=== PATIENT | female | born 1970 | race Caucasian/White ===

== ENCOUNTER → 2017-04-27 | Outpatient (REF) | payer OTHER | LOC: M WUC 09:42 | PROVIDERS: ATTEND Physician Assistant | DX: N39.0 Urinary tract infection, site not specified (principal) ==

== ENCOUNTER → 2017-05-12 | Outpatient (REF) | payer OTHER | LOC: M LAB REF 08:41 | PROVIDERS: ATTEND Physician Assistant | DX: N39.0 Urinary tract infection, site not specified (principal) ==

== ENCOUNTER → 2017-12-05 | Outpatient (REF) | payer OTHER | LOC: M LAB REF 09:23 | DX: N39.0 Urinary tract infection, site not specified (principal) | CPT/HCPCS: 87088; 87186 ==

== ENCOUNTER → 2018-11-21 | Outpatient (REF) | payer OTHER | LOC: M WUC 10:22 | PROVIDERS: ATTEND Physician Assistant | DX: N39.0 Urinary tract infection, site not specified (principal) ==

== ENCOUNTER → 2020-02-07 | Outpatient (REF) | payer OTHER ==
[2020-02-07 18:10] LABS: FOLLICLE STIMULATING HORMONE 138.2 mIU/mL; LUTEINIZING HORMONE 50.7 mIU/mL
== END ==
LOC: M LAB REF 16:54
PROVIDERS: ATTEND Nurse Practitioner Family
DX: N91.2 Amenorrhea, unspecified (principal)

== ENCOUNTER → 2020-02-25 | Outpatient (REF) | payer OTHER | LOC: M WUC 10:05 | PROVIDERS: ATTEND Physician Assistant | DX: N39.0 Urinary tract infection, site not specified (principal) ==

== ENCOUNTER → 2020-03-06 | Outpatient (REF) | payer OTHER | LOC: M WUC 11:58 | PROVIDERS: ATTEND Physician Assistant | DX: N39.0 Urinary tract infection, site not specified (principal) ==

== ENCOUNTER → 2020-04-09 | Outpatient (REF) | payer OTHER | LOC: M SMT 06:47 | PROVIDERS: ATTEND Nurse Practitioner Family | DX: N39.0 Urinary tract infection, site not specified (principal) ==

== ENCOUNTER → 2020-04-26 | Outpatient (REF) | payer OTHER | LOC: M LAB REF 13:27 | PROVIDERS: ATTEND Nurse Practitioner Family | DX: R30.0 Dysuria (principal) ==

== ENCOUNTER → 2020-06-22 | Outpatient (REF) | payer OTHER, BC | LOC: M WUC 10:43 | PROVIDERS: ATTEND Nurse Practitioner Family | DX: R30.0 Dysuria (principal) ==

== ENCOUNTER → 2021-03-17 | Outpatient (REF) | payer OTHER, BC ==
[~2021-03-17] MED LIST: METH-855 PO
[2021-03-17 13:52] LABS: BACTERIA, URINE AUTO NEGATIVE (NEGATIVE); MUCUS, URINE SMALL (NEGATIVE); RBC, URINE AUTO 0 /HPF (0-3); SQUAMOUS EPITHELIAL CELL UR AU 0 /HPF (0-6); WBC, URINE AUTO 0 /HPF (0-3)
== END ==
LOC: M SMT 13:14
PROVIDERS: ATTEND Specialist
DX: Z87.440 Personal history of urinary (tract) infections (principal)

== ENCOUNTER → 2021-05-08 | Outpatient (CLI) | payer BC, OTHER ==
--- NOTE | 2021-05-08 09:17 | REP ---
INDICATION: PAIN. COMPARISON: None. TECHNIQUE: Eight views cervical spine including flexion and extension lateral views. FINDINGS: There is no compression fracture. There is normal cervical lordosis and alignment. There is no subluxation with flexion and extension. There is no prevertebral soft tissue swelling. There is mild anterior and posterior osteophytic ridging at the C5-6 level with associated moderate disc space narrowing and subchondral sclerosis. Uncovertebral spurring at the C5-6 level appears to cause at least a mild degree of bilateral neural foraminal narrowing. IMPRESSION: Moderate degenerative changes C5-6 level. <Electronically signed by Albert Martinez > 05/08/21 [id number]
== END ==
LOC: M PLAIMG 08:41
PROVIDERS: ATTEND Registered Nurse
DX: M50.322 Other cervical disc degeneration at C5-C6 level (principal)

== ENCOUNTER → 2021-05-20 | Outpatient (CLI) | payer BC, OTHER ==
--- NOTE | 2021-05-21 20:19 | REPVR ---
PROCEDURE INFORMATION: Exam: MR Head Without Contrast Exam date and time: 05/20/2021 4:07 PM Age: 51 years old Clinical indication: Headaches; Additional info: Recurrent daily wright's TECHNIQUE: Imaging protocol: MR of the head without contrast. 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 No evidence of hydrocephalus. No midline shift. Few scattered minimal nonspecific T2/FLAIR hyperintensities of the periventricular and deep subcortical white matter, most likely secondary to chronic small vessel ischemic change. No intracranial hemorrhage or extra-axial fluid collection. No restricted diffusion to suggest acute infarct. Bones/joints: Unremarkable. Paranasal sinuses: Unremarkable. No acute sinusitis. Mastoid air cells: No mastoid effusion. Orbital cavity: Unremarkable. Soft tissues: Unremarkable. 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 No evidence of hydrocephalus. Recommend neurosurgery consultation. Electronically signed by: Chivo Crain On 05/21/2021 20:18:44 PM
== END ==
LOC: M PLAIMG 15:25
PROVIDERS: ATTEND Registered Nurse
DX: R51.9 Headache, unspecified (principal)

== ENCOUNTER → 2021-07-24 | Outpatient (CLI) | payer BC, OTHER ==
[~2021-07-24] MED LIST changes: +PROHANCE 279.3MG/ML 15ML VIAL ONE
--- NOTE | 2021-07-25 00:54 | REPVR ---
PROCEDURE INFORMATION: Exam: MR Head Without and With Contrast Exam date and time: 07/24/2021 3:09 PM Age: 51 years old Clinical indication: Condition or disease; Brain lesion; Additional info: F/u pineal lesion TECHNIQUE: Imaging protocol: MR of the head without and with intravenous contrast. Contrast material: PROHANCE; Contrast volume: 13 ml; Contrast route: INTRAVENOUS (IV); COMPARISON: MRI-Brain without Contrast 05/20/2021 3:59 PM FINDINGS: Brain: Unchanged size and appearance of approximately 1.4 cm T2/FLAIR hyperintense pineal cyst. Minimal nonspecific T2/FLAIR hyperintensities of the periventricular and deep subcortical white matter, most likely secondary to chronic small vessel ischemic change. No intracranial hemorrhage or extra-axial fluid collection. No evidence of mass effect or midline shift. No restricted diffusion to suggest acute infarct. No abnormal intracranial enhancement. Cerebral ventricles: No ventriculomegaly. Bones/joints: Unremarkable. Paranasal sinuses: Normal as visualized. No acute sinusitis. Mastoid air cells: No mastoid effusion. Orbital cavity: Unremarkable. Soft tissues: Unremarkable. IMPRESSION: 1. Unchanged size and appearance of approximately 1.4 cm T2/FLAIR hyperintense pineal cyst. 2. Chronic findings, as above. Electronically signed by: Chivo Crain On 07/25/2021 00:53:58 AM
== END ==
LOC: M PLAIMG 14:05
PROVIDERS: ATTEND Neurological Surgery
DX: G93.0 Cerebral cysts (principal)

== ENCOUNTER → 2021-08-03 | Outpatient (CLI) | payer BC, OTHER ==
[~2021-08-03] MED LIST changes: -PROHANCE 279.3MG/ML 15ML VIAL ONE
== END ==
LOC: M LABSMTC 09:44
PROVIDERS: ATTEND Anesthesiology
DX: Z01.812 Encounter for preprocedural laboratory examination (principal); Z20.822 Contact with and (suspected) exposure to COVID-19

== ENCOUNTER 2021-08-07 08:07 | Day surgery (SDC) | payer BC, OTHER ==
[~2021-08-07] VITALS: Ht 157.5 cm; Wt 70.2 kg
[~2021-08-07 08:07] MED LIST changes: +NS 1,000 ML IV ONE
[2021-08-07] MEDS ORDERED: propofoL 200 MG/20 ML VIAL As Ordered ONE ×2 (08:24→09:59)
[2021-08-07] MEDS ORDERED: LIDOCAINE 2% 100MG/5ML SDV (FOR ANES.) As Ordered ONE (08:24)
--- NOTE | 2021-08-07 10:04 | ROOR ---
Patient Name: Abby العراقي Procedure Date: 08/07/2021 9:28 AM Date of : 1970 Age: 51 Room: [facility] Gender: Female Note Status: Finalized Procedure: Colonoscopy Indications: Screening for colorectal malignant neoplasm Providers: Misael Muñiz MD Referring MD: Juanita COPE MD Requesting Provider: Medicines: Monitored Anesthesia Care Complications: No immediate complications. Procedure: Pre-Anesthesia Assessment: - Prior to the procedure, a History and Physical was performed, and patient medications and allergies were reviewed. The patient is competent. The risks and benefits of the procedure and the sedation options and risks were discussed with the patient. All questions were answered and informed consent was obtained. Patient identification and proposed procedure were verified by the physician, the nurse and the anesthesiologist in the procedure room. Mental Status Examination: alert and oriented. Airway Examination: normal oropharyngeal airway and neck mobility. Respiratory Examination: clear to auscultation. CV Examination: normal. Prophylactic Antibiotics: The patient does not require prophylactic antibiotics. Prior Anticoagulants: The patient has taken no previous anticoagulant or antiplatelet agents. ASA Grade Assessment: II - A patient with mild systemic disease. After reviewing the risks and benefits, the patient was deemed in satisfactory condition to undergo the procedure. The anesthesia plan was to use monitored anesthesia care (MAC). Immediately prior to administration of medications, the patient was re-assessed for adequacy to receive sedatives. The heart rate, respiratory rate, oxygen saturations, blood pressure, adequacy of pulmonary ventilation, and response to care were monitored throughout the procedure. The physical status of the patient was re-assessed after the procedure. The Colonoscope was introduced through the anus and advanced to the terminal ileum, with identification of the appendiceal orifice and IC valve. The colonoscopy was performed without difficulty. The patient tolerated the procedure well. The quality of the bowel preparation was good. The terminal ileum, ileocecal valve, appendiceal orifice, and rectum were photographed. Scope insertion time was 2 minutes. Scope withdrawal time was 9 minutes. The total duration of the procedure was 12 minutes. Findings: The perianal and digital rectal examinations were normal. The terminal ileum appeared normal. Four sessile polyps were found in the hepatic flexure. The polyps were 4 to 8 mm in size. These polyps were removed with a cold snare. Resection and retrieval were complete. Verification of patient identification for the specimen was done by the physician and nurse using the patient's name, date and medical record number. Estimated blood loss was minimal. Multiple small-mouthed diverticula were found in the sigmoid colon. There was no evidence of diverticular bleeding. Non-bleeding external and internal hemorrhoids were found during retroflexion. The hemorrhoids were medium-sized. The left colon was moderately tortuous. Advancing the scope required using manual pressure. Impression: - The examined portion of the ileum was normal. - Four 4 to 8 mm polyps at the hepatic flexure, removed with a cold snare. Resected and retrieved. - Moderate diverticulosis in the sigmoid colon. There was no evidence of diverticular bleeding. - Non-bleeding external and internal hemorrhoids. - Tortuous colon. Recommendation: - Patient has a contact number available for emergencies. The signs and symptoms of potential delayed complications were discussed with the patient. Return to normal activities tomorrow. Written discharge instructions were provided to the patient. - High fiber diet. - Continue present medications. - Await pathology results. - Repeat colonoscopy in 3 - 5 years for surveillance based on pathology results. - Telephone GI clinic for pathology results in 2 weeks. - Return to primary care physician. Procedure Code(s): --- Professional --- 87903, Colonoscopy, flexible; with removal of tumor(s), polyp(s), or other lesion(s) by snare technique Diagnosis Code(s): --- Professional --- Z12.11, Encounter for screening for malignant neoplasm of colon K64.8, Other hemorrhoids K63.5, Polyp of colon K57.30, Diverticulosis of large intestine without perforation or abscess without bleeding Q43.8, Other specified congenital malformations of intestine CPT copyright 2019 [employer]. All rights reserved. The codes documented in this report are preliminary and upon assault boat coxswain review may be revised to meet current compliance requirements. Misael Muñiz MD Misael Muñiz MD 08/07/2021 10:04:19 AM Electronically signed by Misael Muñiz MD Number of Addenda: 0 Note Initiated On: 08/07/2021 9:28 AM Estimated Blood Loss: Estimated blood loss was minimal.
[2021-08-07 10:30] VITALS: BP 105/62
== END 2021-08-07 10:35 | disposition home or self-care (01) ==
LOC: M OPP 08:07
PROVIDERS: ATTEND Internal Medicine Gastroenterology
DX: Z12.11 Encounter for screening for malignant neoplasm of colon (principal); Z86.010 Personal history of colon polyps; Z80.0 Family history of malignant neoplasm of digestive organs; D12.6 Benign neoplasm of colon, unspecified; K64.8 Other hemorrhoids; Q43.8 Other specified congenital malformations of intestine; Z79.899 Other long term (current) drug therapy; Z88.1 Allergy status to other antibiotic agents; Z88.2 Allergy status to sulfonamides; Z88.8 Allergy status to other drugs, medicaments and biological substances

== ENCOUNTER → 2022-04-14 | Outpatient (CLI) | payer BC, OTHER ==
[~2022-04-14] MED LIST changes: -NS 1,000 ML IV ONE
== END ==
LOC: M RAD 14:31
PROVIDERS: ATTEND Specialist
DX: R10.819 Abdominal tenderness, unspecified site (principal); R93.89 Abnormal findings on diagnostic imaging of other specified body structures

== ENCOUNTER → 2023-04-22 | Outpatient (CLI) | payer BC, OTHER | LOC: M PLAIMG 06:44 | PROVIDERS: ATTEND Physician Assistant Medical | DX: E34.8 Other specified endocrine disorders (principal) ==

== ENCOUNTER → 2023-11-01 | Outpatient (CLI) | payer BC, OTHER | LOC: M WHC 09:00 | PROVIDERS: ATTEND Physician Assistant Medical | DX: Z12.31 Encounter for screening mammogram for malignant neoplasm of breast (principal) ==

== ENCOUNTER → 2023-11-30 | Outpatient (REF) | payer BC | LOC: M SFHCWAGY 15:21 | PROVIDERS: ATTEND Nurse Practitioner Family | DX: Z12.4 Encounter for screening for malignant neoplasm of cervix (principal) ==

== ENCOUNTER → 2023-12-20 | Outpatient (CLI) | payer BC | LOC: M WHC 06:39 | PROVIDERS: ATTEND Nurse Practitioner Family | DX: D25.9 Leiomyoma of uterus, unspecified (principal) ==

== ENCOUNTER → 2024-02-01 | Outpatient (CLI) | payer BC ==
[~2024-02-01] MED LIST changes: +GASTROGRAFIN SOLUTION 30ML As Ordered ONE; +ISOVUE-370 76% 100ML VIAL As Ordered ONE
== END ==
LOC: M RAD 13:50
PROVIDERS: ATTEND Nurse Practitioner Family
DX: R10.31 Right lower quadrant pain (principal)

== ENCOUNTER → 2024-10-15 | Outpatient (CLI) | payer BC ==
[~2024-10-15] MED LIST changes: -GASTROGRAFIN SOLUTION 30ML As Ordered ONE; -ISOVUE-370 76% 100ML VIAL As Ordered ONE
== END ==
LOC: M WUC 14:17
PROVIDERS: ATTEND Physician Assistant Medical
DX: M79.645 Pain in left finger(s) (principal)

== ENCOUNTER → 2024-11-02 | Outpatient (CLI) | payer BC | LOC: M WHC 07:57 | PROVIDERS: ATTEND Physician Assistant Medical | DX: Z12.31 Encounter for screening mammogram for malignant neoplasm of breast (principal) ==

== ENCOUNTER 2025-01-08 08:46 | Day surgery (SDC) | payer BC ==
[~2025-01-08] VITALS: Ht 157.5 cm; Wt 67.6 kg
[~2025-01-08 08:46] MED LIST changes: +FLUTISP
[2025-01-08] MEDS ORDERED: propofoL 200 MG/20 ML VIAL As Ordered ONE (09:11)
[2025-01-08] MEDS ORDERED: LIDOCAINE 2% 100MG/5ML SDV (FOR ANES.) As Ordered ONE (09:11)
[2025-01-08] MEDS ORDERED: GLYCOPYRROLATE INJ 0.2 MG/ML 2 ML VIAL As Ordered ONE (10:15)
[2025-01-08 10:50] VITALS: BP 118/74; O2SAT 99
== END 2025-01-08 11:02 | disposition home or self-care (01) ==
LOC: M OPP 08:46
PROVIDERS: ATTEND Internal Medicine Gastroenterology
DX: D12.4 Benign neoplasm of descending colon (principal); D12.5 Benign neoplasm of sigmoid colon; Q43.8 Other specified congenital malformations of intestine; Z86.0100 Personal history of colon polyps, unspecified; Z88.2 Allergy status to sulfonamides; Z88.8 Allergy status to other drugs, medicaments and biological substances
CPT/HCPCS: 45385; 88305; J1596

== ENCOUNTER → 2025-05-29 | Outpatient (REF) | payer BC ==
[~2025-05-29] MED LIST changes: +METH-1100 PO; -METH-855 PO
[2025-05-31 14:37] LABS: HPV APTIMA Not Detected (Not Detected)
== END ==
LOC: M PLALAB 07:58
PROVIDERS: ATTEND Physician Assistant
DX: Z12.4 Encounter for screening for malignant neoplasm of cervix (principal)
CPT/HCPCS: 87624; G0123